=== PATIENT | male | born 1950 | race Caucasian/White ===

== ENCOUNTER 2018-05-21 06:57 | Day surgery (SDC) | payer OTHER ==
[2018-05-18 12:06] LABS: Absolute Monocytes 0.5 K/uL (0.1-1.3); Absolute Neutrophil 3.9 K/uL (1.8-8.0); Basophils % 0.6 % (0-1.3); Eosinophils % 1.7 % (0-4.4); Hematocrit 47.9 % (39.6-49.0); Lymphocytes % 17.8 % (15.3-44.8); MPV 7.8 fL (7.6-11.3); Monocytes % 8.6 % (3.3-12.3); RBC Red Blood Cell Count 5.72 M/uL (4.33-5.43)
[2018-05-18 12:20] LABS: Potassium 4.5 mmol/L (3.5-5.1)
[2018-05-18 12:25] LABS: Protime INR 0.95
[2018-05-21] MEDS ORDERED: CEFAZOLIN 1GM (PREMIX IV) 1 GM/50 ML BAG ONE (07:11)
[2018-05-21] MEDS ORDERED: Ringers Lactate 0 ML IV ONE (07:11)
[2018-05-21] MEDS ORDERED: NA CHLORIDE 0.9% 1,000 ML ONE ×2 (07:23→07:28)
[2018-05-21] MEDS ORDERED: FENTANYL CITR 100 MCG/2 ML ONE (08:41)
[2018-05-21] MEDS ORDERED: PROPOFOL 200 MG/20 ML VIAL IV ONE (08:41)
[2018-05-21] MEDS ORDERED: LIDOCAINE 2% MPF 5 ML VIAL ONE (08:41)
[2018-05-21] MEDS ORDERED: MIDAZOLAM HCL 2 MG/2 ML INJ ONE (08:42)
[2018-05-21] MEDS ORDERED: ONDANSETRON 4 MG/2 ML VIAL ONE (08:45)
[2018-05-21] MEDS ORDERED: BUPIVACAINE 0.25% PF 30 ML VIAL ONE (08:47)
[2018-05-21] MEDS ORDERED: GLYCOPYRROLATE 0.2 MG/ML SYR ONE (09:28)
--- NOTE | 2018-05-21 10:05 | P.BOP ---
Preoperative diagnosis: right hand long finger, ring finger, small finger trigger digit Postoperative diagnosis: same Primary procedure: right hand long finger, ring finger, small finger A1 elida release Body And Frame Man: NONE,NONE Estimated blood loss: 3 cc Specimen: none Findings: see dictation Anesthesia: General Complications: None Implants: none Fluids & blood products: per anesthesia record; TT: 28 mins @ 250 mmHg Transferred to: Recovery Room Condition: Good
[2018-05-21] MEDS ORDERED: HYDROCODONE/APAP 5/325 MG TAB ONE (11:28)
--- NOTE | 2018-05-21 22:49 | OP ---
Date of Procedure: 05/21/2018 Surgeon: Luis Alvarez MD Preoperative Diagnosis: Right hand long finger, ring finger, small finger trigger digits. Postoperative Diagnosis: Right hand long finger, ring finger, small finger trigger digits. Procedure Performed: Right hand long finger, ring finger, small finger A1 elida release. Anesthesia: General LMA. Fluids: Per Anesthesia record. Ebl: 3 cc. Complications: None. Implants: None. Tourniquet Time: 28 minutes at 250 mmHg. Indication For Procedure: Minh is a 67-year-old male who presented to my clinic with signs and sy mptoms and physical exam findings consistent with right hand long finger, ring finger, small finger t research fellow digits. The patient failed conservative treatment measures including corticosteroid injection . He had continued pain and triggering of his right hand. I discussed with the patient at length, r isks and benefits associated with operative and nonoperative treatments. He expressed understanding and elected to proceed with operative treatment. Description Of Procedure: After informed consent was obtained, the patient was identified in the pre operative holding area. The right upper extremity was marked. The patient was then brought back to the operating room, transferred to the operating table in the supine fashion and placed under general LMA anesthesia. The right upper extremity was then prepped and draped in usual sterile fashion. A time-out was initiated. The correct patient and procedure were confirmed and identified. The patien rakesh did receive his preoperative prophylactic antibiotics. The right upper extremity was then exsangui nated using an Esmarch. The tourniquet was inflated to 250 mmHg. First, attention was taken to the long finger where approximately, a centimeter long incision was made over the A1 elida over the vola r aspect of the hand. Dissection was then taken down to the flexor tendon sheath using a 15 blade. The flexor tendon sheath was incised and divided over the length of the A1 elida. There was noted t o be some synovitis upon release of the A1 elida. Ragnell was then used to bring out the flexor ten don through the incision and there was full excursion of the flexor tendon with a full flexion of the digit without any triggering. Next, attention was taken to the ring finger. Approximately, a centi meter long incision was made over the A1 elida of the ring finger. Dissection was taken down to the flexor tendon sheath, which was split and divided using a 15 blade. Using a Ragnell, the flexor ten don was then brought out through the incision and there was full range of motion of the ring finger w ith no triggering of the digit. Next, attention was taken to the small finger where approximately a centimeter long incision was made over the A1 elida of the small finger. Dissection was then taken down to the flexor tendon sheath, which was split and divided using a 15 blade. A Ragnell was then u sed to bring out the flexor tendon through the incision. There was full excursion of the flexor tend on and motion of the small finger with no triggering. The wounds were then irrigated thoroughly with normal saline. Flexor tendons were then irrigated using Angiocath. The skin was then approximated using a 5-0 Prolene. Sterile dressings were applied. The patient was awakened and transferred to PAC U in stable condition. Postoperative Plan: Nonweightbearing to his right hand. He was instructed to begin working on range of motion of his digits. He will follow up in my clinic in 1-1/2 week for wound check and suture re moval. BASIM/JUDE Voice ID: [id number] Report ID: [id number]
== END 2018-05-21 11:57 | disposition home or self-care (01) ==
LOC: OR 06:57
PROVIDERS: ATTEND Orthopaedic Surgery Sports Medicine
PROC: 0LN70ZZ Release Right Hand Tendon, Open Approach (ICD-10-PCS; 2018-05-21)
PROC: 0LN70ZZ Release Right Hand Tendon, Open Approach (ICD-10-PCS; 2018-05-21)
PROC: 0LN70ZZ Release Right Hand Tendon, Open Approach (ICD-10-PCS; principal; 2018-05-21 08:45)
DX: M65.331 Trigger finger, right middle finger (principal); M65.341 Trigger finger, right ring finger; M65.351 Trigger finger, right little finger; M65.841 Other synovitis and tenosynovitis, right hand; E11.9 Type 2 diabetes mellitus without complications; E78.5 Hyperlipidemia, unspecified; I10 Essential (primary) hypertension; J44.9 Chronic obstructive pulmonary disease, unspecified; G47.33 Obstructive sleep apnea (adult) (pediatric); M15.9 Polyosteoarthritis, unspecified; Z79.82 Long term (current) use of aspirin; Z79.4 Long term (current) use of insulin; Z79.899 Other long term (current) drug therapy; Z87.891 Personal history of nicotine dependence
CPT/HCPCS: 26055 ×3; 36415; 80048; 82962 ×2; 85025; 85610; 85730; J0690; J2250; J2405; J2704; J3010; J7030 ×2

== ENCOUNTER 2019-01-19 06:12 | Day surgery (SDC) | payer OTHER ==
[2019-01-19] MEDS ORDERED: NA CHLORIDE 0.9% 1,000 ML ONE (06:16)
[2019-01-19] MEDS ORDERED: CEFAZOLIN/SWI 1gm 1 GM/10 ML SYR ONE (06:17)
[2019-01-19] MEDS ORDERED: FENTANYL CITR 100 MCG/2 ML ONE (07:15)
[2019-01-19] MEDS ORDERED: MIDAZOLAM HCL 2 MG/2 ML INJ ONE (07:15)
[2019-01-19] MEDS ORDERED: PROPOFOL 200 MG/20 ML VIAL IV ONE (07:15)
[2019-01-19] MEDS ORDERED: LIDOCAINE 2% MPF 5 ML VIAL ONE (07:16)
[2019-01-19] MEDS ORDERED: BUPIVACAINE 0.25% PF 10 ML VIAL ONE (07:18)
[2019-01-19] MEDS ORDERED: ONDANSETRON 4 MG/2 ML VIAL ONE (07:36)
[2019-01-19] MEDS ORDERED: GLYCOPYRROLATE 0.2 MG/ML SYR ONE (07:36)
[2019-01-19] MEDS ORDERED: EPHEDRINE SULF 50 MG/ML VIAL ONE (07:38)
[2019-01-19] MEDS ORDERED: Ringers Lactate 1,000 ML IV ONE (08:36)
--- NOTE | 2019-01-19 08:43 | P.BOP ---
Preoperative diagnosis: right carpal tunnel syndrome, right middle finger recurrent trigger digit Postoperative diagnosis: same Primary procedure: right carpal tunnel release Secondary procedure: right middle finger revision A1 elida release Estimated blood loss: <5 cc Specimen: none Findings: see dictation Anesthesia: General Complications: None Implants: none Fluids & blood products: per anesthesia record; TT: 37 mins @ 250 mmHg Transferred to: Recovery Room Condition: Good
[2019-01-19] MEDS ORDERED: CODEINE 30MG/APAP 300MG TAB ONE (09:07)
--- NOTE | 2019-01-19 22:03 | OP ---
Date of Procedure: 01/19/2019 Surgeon: Luis Alvarez MD Preoperative Diagnoses: 1.Right hand recurrent middle finger trigger digit. 2.Right hand carpal tunnel syndrome. Postoperative Diagnoses: 1.Right hand recurrent middle finger trigger digit. 2.Right hand carpal tunnel syndrome. Procedures Performed: 1.Right hand open carpal tunnel release. 2.Right hand middle finger revision, A1 elida release. Anesthesia: General LMA. Fluids: Per Anesthesia record. Estimated Blood Loss: Less than 5 cc. Tourniquet Time: 37 minutes at 250 mmHg. Indication For Procedure: Mr. Cuenca is a 68-year-old male, who presented to my clinic with signs an d symptoms and EMG findings consistent with carpal tunnel syndrome of his right upper extremity. Pat ient failed conservative treatment measures including night splints. Patient has history of right lo ng finger A1 elida release in the past. He initially did well with surgery; however, he reports rec urrent pain and occasional tightness of his long finger, pain over the A1 elida, and he also reports occasional triggering type symptoms. I discussed with the patient at length risks and benefits asso ciated with operative and nonoperative treatment given his continued symptoms in light of improvement , conservative treatment measures, I recommended operative treatment. Description Of Procedure: After informed consent was obtained, the patient was identified in the pre operative holding area. The right upper extremity was marked. The patient was then brought back to the operating room and transferred on the operating room table in supine fashion and placed under gen eral LMA anesthesia. The right upper extremity was then prepped and draped in the usual sterile fash ion. A time-out was initiated. The correct patient and procedure were confirmed and identified. Th e patient did receive his preoperative prophylactic antibiotics. The right upper extremity was then exsanguinated using an Esmarch and the tourniquet was inflated to 250 mmHg. Attention was first take n on carpal tunnel release. A 3 cm longitudinal incision was made just ulnar to thenar crease. Diss ection was then taken down to the palmar fascia, which was identified. A [place] elevator was placed d eep to the palmar fascia, which protected the median nerve and a 15 blade was then used to release th e transverse carpal ligament. The median nerve was protected throughout this release using the [place] elevator to protect the nerve. Transverse carpal ligament was then divided using a 15 blade ___. A blunt-tip Metzenbaum scissors was then used to complete release of any fascial bands within t he proximal segment of the transverse carpal ligament. transverse carpal ligament was per formed. Wound was then irrigated thoroughly with normal saline. Next, attention was taken to the mi ddle finger. Approximately, a 1 cm incision was made, centered over the A1 elida of the middle fing er. There was some scar tissue identified after skin incision was made. Attention was then taken ba ck to the A1 elida, which was noted almost scarred completely over. A 15 blade was then used to rel ease the A1 elida and part of the flexor tendon sheath was excised using a tenotomy to minimize risk for recurrence. After release of the flexor tendon sheath, there was some synovial fluid that was e xpressed from the flexor tendon sheath. The tendon was then pulled up, was then brought out through the skin incision and there was full excursion noted without any triggering. The wound was then irri gated thoroughly with normal saline and skin incisions were approximated using a 5-0 Prolene. Steril e dressings were applied. Tourniquet was let down. Patient was awakened in satisfactory and stable condition. Postoperative Plan: He will be nonweightbearing of his right upper extremity. He may work on range of motion exercises of his right hand. He will follow up in my clinic in approximately 1 week for wound check and suture removal. BASIM/JUDE Voice ID: [id number] Report ID: [id number]
== END 2019-01-19 09:50 | disposition home or self-care (01) ==
LOC: OR 06:12
PROVIDERS: ATTEND Orthopaedic Surgery Sports Medicine
PROC: 01N50ZZ Release Median Nerve, Open Approach (ICD-10-PCS; principal; 2019-01-19 07:30)
PROC: 0LN70ZZ Release Right Hand Tendon, Open Approach (ICD-10-PCS; 2019-01-19 07:30)
DX: G56.01 Carpal tunnel syndrome, right upper limb (principal); M65.331 Trigger finger, right middle finger; E11.9 Type 2 diabetes mellitus without complications; I10 Essential (primary) hypertension; J44.9 Chronic obstructive pulmonary disease, unspecified; M19.90 Unspecified osteoarthritis, unspecified site; G47.33 Obstructive sleep apnea (adult) (pediatric); E78.5 Hyperlipidemia, unspecified; N42.9 Disorder of prostate, unspecified; N52.9 Male erectile dysfunction, unspecified; Z85.828 Personal history of other malignant neoplasm of skin
CPT/HCPCS: 82962 ×2; 64721; 26055; J2704; J2250; J3010; J0690; J7030; J2405

== ENCOUNTER 2019-10-19 09:20 | Day surgery (SDC) | payer OTHER ==
[2019-10-14 09:26] LABS: Absolute Lymphocytes (CBC) 0.7 K/uL (0.7-4.9); Basophils % 0.6 % (0-1.3); Hematocrit 45.8 % (39.6-49.0); Lymphocytes % 12.4 % (15.3-44.8); MPV 7.9 fL (7.6-11.3); RBC Red Blood Cell Count 5.29 M/uL (4.33-5.43)
[2019-10-14 09:38] LABS: Potassium 4.8 mmol/L (3.5-5.1)
[2019-10-14 09:44] LABS: Protime INR 0.84
--- NOTE | 2019-10-14 09:48 | RAD REPORT ---
EXAM DESCRIPTION: RAD - Chest Pa And Lat (2 Views) - 10/14/2019 9:21 am CLINICAL HISTORY: preop, preop chest, pending right hand surgery COMPARISON: Two view chest December 2018 TECHNIQUE: Frontal and lateral views of the chest were obtained. FINDINGS: The lungs are clear of an acute lung parenchymal process. Granulomatous calcifications are scattered in the chest matching the prior study. No new mediastinal or hilar finding. Heart size i s normal and central vasculature is within normal limits. No pleural effusion or pneumothorax seen. No acute bony finding noted. No aortic abnormality. No significant change from comparison. IMPRESSION: No acute cardiopulmonary process.
[2019-10-19] MEDS ORDERED: CEFAZOLIN/SWI 1gm 1 GM/10 ML SYR ONE (09:42)
[2019-10-19] MEDS ORDERED: Ringers Lactate 1,000 ML IV ONE (09:42)
[2019-10-19] MEDS ORDERED: LIDOCAINE 2% MPF 5 ML VIAL ONE (10:29)
[2019-10-19] MEDS ORDERED: FENTANYL CITR 100 MCG/2 ML ONE (10:29)
[2019-10-19] MEDS ORDERED: propofoL 200 MG/20 ML VIAL IV ONE (10:29)
[2019-10-19] MEDS ORDERED: MIDAZOLAM HCL 2 MG/2 ML INJ ONE (10:29)
[2019-10-19] MEDS ORDERED: BUPIVACAINE 0.25% PF 10 ML VIAL ONE (11:02)
[2019-10-19] MEDS ORDERED: EPHEDRINE SULF 50 MG/ML VIAL ONE (11:06)
[2019-10-19] MEDS ORDERED: KETOROLAC 30 MG/ML INJ ONE (11:37)
[2019-10-19] MEDS ORDERED: ONDANSETRON 4 MG/2 ML VIAL ONE (11:38)
[2019-10-19] MEDS ORDERED: dexAMETHasone 4 MG/ML VIAL ONE (11:38)
--- NOTE | 2019-10-19 11:39 | P.BOP ---
Preoperative diagnosis: right thumb, index finger trigger digits Postoperative diagnosis: same Primary procedure: right thumb A1 elida release Secondary procedure: right index finger A1 elida release Manager Communication: NONE,NONE Estimated blood loss: <5 cc Specimen: none Findings: see dictation Anesthesia: General Complications: None Implants: none Fluids & blood products: per anesthesia record; TT: 38 mins @ 250 mmHg Transferred to: Recovery Room Condition: Good
[2019-10-19] MEDS ORDERED: CODEINE 30MG/APAP 300MG TAB PO ONE (12:38)
[2019-10-19] MEDS ORDERED: CODEINE 30MG/APAP 300MG TAB ONE (12:43)
[2019-10-19 13:15] VITALS: BP 140/65; TEMP 96.8; O2SAT 99
--- NOTE | 2019-10-20 18:32 | OP ---
Date of Procedure: 10/19/2019 Surgeon: Luis Alvarez MD Preoperative Diagnosis: Right hand trigger thumb, trigger index finger. Postoperative Diagnosis: Right hand trigger thumb, trigger index finger. Procedure Performed: Right hand A1 elida release of the right thumb and index finger. Anesthesia: General/LMA. Fluids: Per Anesthesia record. Estimated Blood Loss: Less than 5 mL. Complications: None. Indications: Minh is a 68-year-old male who presented to my clinic with signs and symptoms consis tent with right hand trigger finger of the index and thumb. He has history of past trigger digits. I discussed with the patient at length risks and benefits associated with operative and nonoperative treatment. He expressed understanding and elected to proceed with operative treatment. Description Of Procedure: After informed consent was obtained, the patient was identified in the pre operative holding area and the right index finger and his thumb were marked. Patient was then taken back to the operating room, transferred to the operating table in the supine fashion, placed under ge neral LMA anesthesia. Right upper extremity was then prepped and draped in usual sterile fashion and time-out was initiated. Correct patient and procedure were confirmed and identified. The patient d id receive his preoperative prophylactic antibiotics. The right upper extremity was then exsanguinat ed using an Esmarch and the tourniquet was inflated to 250 mmHg. Attention was first taken to the th umb where approximately a 1 cm incision was made in line with the flexion crease of the thumb. Disse ction was then taken down to the A1 elida. The radial digital nerve to the thumb was identified and gently retracted. The A1 elida was then identified and incised using a #15 blade. There was signi ficant amount of inflammatory fluid that was expressed. A1 elida was then completely released both proximally and distally using tenotomies. Using a Ragnell, the flexor tendon was then brought out th rough the incision and there was full excursion of the flexor tendon without any triggering. The wou nd was then irrigated thoroughly with normal saline. Next, attention was taken down to the index fin octavio. A 1 cm longitudinal incision was made centered over the A1 elida. Dissection was gently taken down to the A1 elida using Ragnell. Once the flexor tendon sheath was identified, it was incised u sing a #15 blade. Flexor tendon sheath was then opened and divided both proximally and distally usin g tenotomies. Once complete release of the flexor tendon sheath was completed, it was then irrigated thoroughly with normal saline. The Ragnell was then used to bring out the flexor tendon sheath thro ugh the incision and there was full excursion of the tendon without any triggering noted. The incisi ons were then approximated using a 5-0 Prolene. Sterile dressings were applied. Tourniquet was let down. Patient was awakened and transferred to the PACU in stable condition. Postoperative Plan: Patient will be nonweightbearing of his right upper extremity. He may begin wor tito on range of motion exercises. He will follow up next week for wound check and suture removal. BASIM/JUDE Voice ID: [id number] Report ID: [id number]
== END 2019-10-19 13:03 | disposition home health service (06) ==
LOC: OR 09:20
PROVIDERS: ATTEND Orthopaedic Surgery Sports Medicine
PROC: 0LN70ZZ Release Right Hand Tendon, Open Approach (ICD-10-PCS; 2019-10-19)
PROC: 0LN70ZZ Release Right Hand Tendon, Open Approach (ICD-10-PCS; principal; 2019-10-19 10:30)
DX: M65.311 Trigger thumb, right thumb (principal); M65.321 Trigger finger, right index finger; Z11.59 Encounter for screening for other viral diseases; E11.9 Type 2 diabetes mellitus without complications; I10 Essential (primary) hypertension; E78.5 Hyperlipidemia, unspecified; M19.90 Unspecified osteoarthritis, unspecified site; J44.9 Chronic obstructive pulmonary disease, unspecified; G47.33 Obstructive sleep apnea (adult) (pediatric); K21.9 Gastro-esophageal reflux disease without esophagitis; N52.9 Male erectile dysfunction, unspecified; Z79.82 Long term (current) use of aspirin; Z85.828 Personal history of other malignant neoplasm of skin; Z87.891 Personal history of nicotine dependence; Z80.8 Family history of malignant neoplasm of other organs or systems; Z82.61 Family history of arthritis; Z83.3 Family history of diabetes mellitus; Z82.3 Family history of stroke; Z82.49 Family history of ischemic heart disease and other diseases of the circulatory system
CPT/HCPCS: 26055 ×2; 85025; 80048; 36415; 85610; 85730; 71046; J2704; J2250; J3010; J0690; J7120; J2405

== ENCOUNTER 2022-01-01 06:57 | Day surgery (SDC) | payer OTHER ==
--- NOTE | 2021-12-31 09:52 | RAD REPORT ---
EXAM DESCRIPTION: RAD - Chest Pa And Lat (2 Views) - 12/31/2021 9:44 am CLINICAL HISTORY: Pre op pending carpal tunnel surgery COMPARISON: Two view chest 02/22/2021, two view chest 10/14/2019 TECHNIQUE: Frontal and lateral views of the chest were obtained. FINDINGS: The lungs are clear of an acute infiltrate, failure or volume overload finding. No new mas s lesions seen. Calcified lung field nodules are stable for greater than 2 years dating back to at le ast 2019. Trachea is in the midline. Heart size is normal and central vasculature is within normal limits. No pleural effusion or pneumothorax seen. No acute bony finding noted. No aortic abnormali ty. IMPRESSION: No acute cardiopulmonary process. No significant change from comparison study.
[2021-12-31 10:04] LABS: Absolute Lymphocytes (CBC) 0.9 K/uL (0.7-4.9); Hematocrit 41.6 % (39.6-49.0); Lymphocytes % 12.5 % (15.3-44.8); MCV 85.1 fL (80-100); MPV 7.3 fL (7.6-11.3); RBC Red Blood Cell Count 4.89 M/uL (4.33-5.43)
[2021-12-31 10:21] LABS: SARS-CoV-2 Antigen Rapid Res Negative (Negative)
[2021-12-31 10:31] LABS: Potassium 4.4 mmol/L (3.5-5.1)
[2021-12-31 10:46] LABS: Protime INR 0.93
--- NOTE | 2022-01-01 07:23 | EKG ---
Test Date: 2021-12-31 Test Time: 09:24:50 Recruiting Consultant: JACQUI MEASUREMENT RESULTS: Intervals: Rate: 58 CO: 194 QRSD: 90 QT: 410 QTc: 402 [place]: P: 61 CO: 194 QRS: -20 T: 47 INTERPRETIVE STATEMENTS: Sinus bradycardia Otherwise normal ECG Compared to ECG 01/10/2019 09:54:16 No significant changes Electronically Signed On 01-01-22 07:19:33 CDT by Ismael Regalado
[2022-01-01] MEDS ORDERED: FENTANYL CITR 100 MCG/2 ML ONE (07:28)
[2022-01-01] MEDS ORDERED: propofoL 200 MG/20 ML VIAL IV ONE ×2 (07:28)
[2022-01-01] MEDS ORDERED: NS 0.9% VIAL 30 ML ONE (07:28)
[2022-01-01] MEDS ORDERED: MIDAZOLAM HCL 2 MG/2 ML INJ ONE (07:28)
[2022-01-01] MEDS ORDERED: ONDANSETRON 4 MG/2 ML VIAL ONE (07:29)
[2022-01-01] MEDS ORDERED: LIDOCAINE 1% MPF 30 ML VIAL ONE (07:29)
[2022-01-01] MEDS ORDERED: LIDOCAINE 2% MPF 5 ML VIAL ONE (07:29)
[2022-01-01] MEDS ORDERED: KETOROLAC 30 MG/ML INJ ONE (07:29)
[2022-01-01] MEDS ORDERED: BUPIVACAINE 0.25% PF 10 ML VIAL ONE (07:40)
[2022-01-01] MEDS ORDERED: CEFAZOLIN SODIUM 1 GM/VIAL ONE (07:42)
[2022-01-01] MEDS ORDERED: NA CHLORIDE 0.9% 1,000 ML ONE (07:43)
[2022-01-01 08:03] VITALS: O2SAT 95
--- NOTE | 2022-01-01 09:11 | P.BOP ---
Preoperative diagnosis: left carpal tunnel syndrome Postoperative diagnosis: same Primary procedure: left open carpal tunnel relesae Anatomy And Physiology Instructor: NONE,NONE Estimated blood loss: 3 cc Findings: see dictation Anesthesia: [place] block Complications: None Implants: none Fluids & blood products: per anesthesia record; TT: 30 mins @ 300 mmHg Transferred to: Recovery Room Condition: Good
[2022-01-01 09:49] VITALS: BP 123/60; TEMP 96.3
--- NOTE | 2022-01-01 21:30 | OP ---
Date of Procedure: 01/01/2022 Surgeon: Luis Alvarez MD Preoperative Diagnosis: Left carpal tunnel syndrome. Postoperative Diagnosis: Left carpal tunnel syndrome. Procedure Performed: Left open carpal tunnel release. Anesthesia: [place] block. Fluids: Per Anesthesia's record. Estimated Blood Loss: 3 cc. Complications: None. Implants: None. Tourniquet Time: 30 minutes at 300 mmHg. Indication For Procedure: Minh is a 71-year-old male who presented to my clinic with signs, sympt oms, and EMG findings consistent with carpal tunnel syndrome on his left upper extremity. The patien t failed conservative treatment measures including night splint and had significant difficulties with activities of daily living. I discussed with the patient at length risks and benefits associated wi operative and nonoperative treatment. He expressed understanding and elected to proceed with oper ative treatment. Description Of Procedure: After informed consent was obtained, the patient was identified in the pre operative holding area. The left upper extremity was marked. The patient was then brought back to [facility] operating room, transferred to the operating room table in the supine fashion and placed under Bie r block anesthesia of his left upper extremity by Anesthesia Team. The left upper extremity was then prepped and draped in usual sterile fashion. A time-out was initiated. The correct patient and pro cedure were confirmed and identified. The patient did receive his preoperative prophylactic antibiot ics. Approximately, a 3 cm longitudinal incision was made just ulnar to the thenar crease and distal to the wrist crease. Dissection was then taken down to the palmar fascia, which was identified. A [place] elevator was placed just deep to the palmar fascia and transverse carpal ligament to protect th e median nerve at all times. A 15-blade was then used to release the palmar fascia and transverse ca rpal ligament under direct visualization. A [place] elevator was used to protect the median nerve at a ll times. After this was completed, any remaining fascial bands were released using blunt-tipped Met zenbaums. They were aimed superficially again to protect the median nerve at all times. After this was completed, the wound was irrigated thoroughly with normal saline and skin was approximated using a 5-0 Prolene. Sterile dressings were applied. Tourniquet was let down. The patient was awakened a nd transferred to same-day surgery in stable condition. Postoperative Plan: The patient may begin work on range of motion exercises and he will follow up in 1 week for suture removal. BASIM/JDUE Voice ID: [id number] Report ID: [id number]
== END 2022-01-01 09:42 | disposition home or self-care (01) ==
LOC: OR 06:57
PROVIDERS: ATTEND Orthopaedic Surgery Sports Medicine
PROC: 01N50ZZ Release Median Nerve, Open Approach (ICD-10-PCS; principal; 2022-01-01 08:00)
DX: G56.02 Carpal tunnel syndrome, left upper limb (principal); Z20.822 Contact with and (suspected) exposure to COVID-19
CPT/HCPCS: 93005; 85025; 80048; 36415; 85610; 82947; 85730; 71046; 87811; 64721; J2704 ×2; J2250; J3010; J7030; J2405; J0690

== ENCOUNTER 2024-03-02 06:52 | Day surgery (SDC) | payer OTHER ==
[2024-03-01 09:38] LABS: Anion Gap 9.1 mEq/L (5.0-15.0); Potassium 4.1 mEq/L (3.5-5.1)
[2024-03-01 09:40] LABS: PT Prothrombin Time 11.5 SECONDS (9.4-12.5); Protime INR 1.03
[2024-03-02 07:29] LABS: Absolute Eosinophils 0.1 K/uL (0-0.5); Absolute Lymphocytes (CBC) 0.9 K/uL (0.7-4.9); Absolute Monocytes 0.6 K/uL (0.1-1.3); Absolute Neutrophil 5.2 K/uL (1.8-8.0); Basophils % 0.6 % (0-1.3); Eosinophils % 2.1 % (0-4.4); Hematocrit 36.3 % (39.6-49.0); Hemoglobin 12.2 g/dL (13.6-17.9); Lymphocytes % 13.1 % (15.3-44.8); MCH 29.2 pg (27.0-35.0); MCHC 33.7 g/dL (32.0-36.0); MCV 86.7 fL (80-100); MPV 7.3 fL (7.6-11.3); Monocytes % 8.1 % (3.3-12.3); Neutrophils % 76.1 % (41.7-73.7); Platelets 221 thou/uL (152-406); RBC Red Blood Cell Count 4.19 M/uL (4.33-5.43); Red Cell Distribution Width 15.1 % (12.1-15.2)
[2024-03-02] MEDS ORDERED: NA CHLORIDE 0.9% 1,000 ML ONE (07:42)
[2024-03-02] MEDS ORDERED: LIDOCAINE 1% MPF 5 ML VIAL ONE (08:14)
[2024-03-02] MEDS ORDERED: propofoL 200 MG/20 ML VIAL IV ONE ×2 (08:14)
[2024-03-02 09:54] VITALS: O2SAT 100
[2024-03-02 09:56] VITALS: BP 129/67; TEMP 97.8
--- NOTE | 2024-03-02 12:55 | EKG ---
Test Date: 2024-03-02 Test Time: 07:22:27 Metal Furnace Operator: KEI MEASUREMENT RESULTS: Intervals: Rate: 60 CA: 210 QRSD: 86 QT: 430 QTc: 430 [place]: P: 51 CA: 210 QRS: -7 T: 56 INTERPRETIVE STATEMENTS: Sinus rhythm with 1st degree AV block with premature atrial complexes Otherwise normal ECG Compared to ECG 12/31/2021 09:24:50 Atrial premature complex(es) now present First degree AV block now present Sinus bradycardia no longer present Electronically Signed On 03-02-24 12:53:56 CDT by Niko Perry
== END 2024-03-02 09:28 | disposition home or self-care (01) ==
LOC: OR 06:52
PROVIDERS: ATTEND Surgery
PROC: 0DJD8ZZ Inspection of Lower Intestinal Tract, Via Natural or Artificial Opening Endoscopic (ICD-10-PCS; principal; 2024-03-02 08:00)
DX: K62.5 Hemorrhage of anus and rectum (principal); R19.4 Change in bowel habit; I10 Essential (primary) hypertension; J44.9 Chronic obstructive pulmonary disease, unspecified; E78.00 Pure hypercholesterolemia, unspecified; K57.30 Diverticulosis of large intestine without perforation or abscess without bleeding; Z86.0100 Personal history of colon polyps, unspecified
CPT/HCPCS: 93005; 85025; 80048; 36415; 85610; 82947; 85730; 45378; J2704 ×2; J2001; J7030